=== PATIENT | male | born 1985 | race Two or more races ===

== ENCOUNTER 2017-05-18 10:22 | Emergency (ER) | payer BC, OTHER ==
[~2017-05-18] VITALS: Ht 182.9 cm; Wt 108.9 kg
[~2017-05-18 10:22] MED LIST: BENTYL10 MG ORAL; CEPHALEXIN500 MG ORAL; PERI-COLACE TA1 EACH PO; TRAMADOL HCL50 MG ORAL; ZANTAC150 MG ORAL
[2017-05-18 10:47] VITALS: BP 149/88
[2017-05-18] MEDS ORDERED: Ketorolac 30mg Inj IV ONE (11:15)
[2017-05-18 11:22] LABS: APPEARANCE,URINE CLEAR; KETONES,URINE NEGATIVE (NEGATIVE); LEUKOCYTE ESTERASE ,URINE NEGATIVE (NEGATIVE); NITRITE,URINE NEGATIVE (NEGATIVE); PH,URINE 6 (4.5-8.0); PROTEIN,URINE NEGATIVE (NEGATIVE); UROBILINOGEN,URINE NORMAL MG/DL (0.0-1.0)
[2017-05-18 11:27] LABS: BASOPHILS % (AUTO) 1.7 % (0.0-2.0); EOSINOPHILS % (AUTO) 1.2 % (0.0-3.0); LYMPHOCYTES % (AUTO) 34.5 % (20.0-45.0); MEAN CORPUSCULAR HEMOGLOBIN 29.2 PG (27.0-31.0); MEAN CORPUSCULAR HGB CONC 33.8 G/DL (32.0-36.0); MEAN CORPUSCULAR VOLUME 86 FL (80-99); MEAN PLATELET VOLUME 6.5 FL (6.5-10.1); MONOCYTES % (AUTO) 12.6 % (1.0-10.0); PLATELET COUNT 246 K/UL (150-450); RED BLOOD COUNT 5.73 M/UL (4.70-6.10); RED CELL DISTRIBUTION WIDTH 11.2 % (11.6-14.8); WHITE BLOOD COUNT 5.9 K/UL (4.8-10.8)
[2017-05-18 11:33] LABS: PROTHROMBIN TIME 10.4 SEC (9.30-11.50)
[2017-05-18 11:38] LABS: ANION GAP 4 mmol/L (5-15); CARBON DIOXIDE 32 MMOL/L (21-32); CHLORIDE 103 MMOL/L (98-107); GLOMERULAR FILTRATION RATE > 60 mL/min (>60); POTASSIUM 3.9 MMOL/L (3.5-5.1); SODIUM 139 MMOL/L (136-145)
[2017-05-18 11:44] LABS: ALANINE AMINOTRANSFERASE 66 U/L (12-78); ALBUMIN/GLOBULIN RATIO 1.1 (1.0-2.7); ASPARTATE AMINO TRANSFERASE 32 U/L (15-37); TOTAL PROTEIN 7.9 G/DL (6.4-8.2)
--- NOTE | 2017-05-18 11:48 | Diagnostic Imaging Report ---
Indication: Headache Technique: Continuous helical CT scanning of the head was performed without intravenous contrast material. Axial and coronal 5 mm sections were generated. Radiation dose was minimized using automated exposure control Dose: Total Dose Length Product - DLP [address] Dose Index - CTDIvol(s) 70.38 mGy. Comparison: None Findings: The ventricular system is normal in size and configuration. There is no shift of midline structures. No abnormal extra-axial fluid collections are noted. There is no evidence of intracerebral bleeding. No other abnormal high or low density areas are noted within the brain. Impression: Normal CT scan of the head without contrast material. The CT scanner at [facility] is accredited by the [employer] and the scans are performed using protocols designed to limit radiation exposure to as low as reasonably achievable to attain images of sufficient resolution adequate for diagnostic evaluation.
[2017-05-18 12:45] LABS: ERYTHROCYTE SEDIMENTATION RATE 4 MM/HR (0-15)
--- NOTE | 2017-05-18 12:51 | Emergency Room Report ---
History of Present Illness General Chief Complaint: Headache Source: Patient, Medical Record Present Illness HPI Patient presents with several days of worsening headache. He has never had a headache like this before. He denies trauma, fever. He feels it is worse when he looks to the right. There is no change in vision. It is more right sided and radiates up into his protestant area. Also has pain in his neck radiating upwards. He's not taken any medication. It prevented him from sleeping last night. No nausea or vomiting. He does occasionally drink alcohol and smoke. Denies drugs. No hypertension. He was admitted last year with appendicitis. No GI or symptoms. There is stress. Allergies: Coded Allergies: No Known Allergies (Unverified , 04/05/16) Patient History Past Medical History: see triage record, old chart reviewed Past Surgical History: appy Social History: Reports: smoking, alcohol use Social History Narrative Consul for [facility] Reviewed Nursing Documentation: PMH: Agreed, PSxH: Agreed Nursing Documentation-PMH Hx Cardiac Problems: No Hx Cancer: No Hx Gastrointestinal Problems: No Hx Neurological Problems: No Review of Systems All Other Systems: negative except mentioned in HPI Physical Exam Vital Signs Date Time Temp Pulse Resp B/P (MAP) Pulse Ox O2 Delivery O2 Flow Rate FiO2 05/18/17 10:27 98.1 98 20 149/88 99 Room Air Sp02 EP Interpretation: reviewed, normal General Appearance: well appearing, no apparent distress, GCS 15 Head: normocephalic Eyes: bilateral eye normal inspection, bilateral eye PERRL, bilateral eye EOMI ENT: moist mucus membranes Neck: full range of motion - with some R sided tenderness, supple Respiratory: lungs clear, normal breath sounds Cardiovascular #1: regular rate, rhythm Cardiovascular #2: 2+ radial (R) Gastrointestinal: normal inspection, normal bowel sounds, non tender, no mass, non-distended Musculoskeletal: back normal, gait/station normal, normal range of motion Neurologic: alert, oriented x3, accounts receivable clerk III-XII nml as tested, motor strength/tone normal, DTRs symmetric, sensory intact, cerebellar normal, normal gait, speech normal Psychiatric: mood/affect normal Skin: normal inspection, warm/dry Medical Decision Making Diagnostic Impression: Primary Impression: Headache Qualified Codes: G44.209 - Tension-type headache, unspecified, not intractable ER Course Patient presents with acute headache, most severe of life. DDx: vasculitis, tension, stress, trigeminial neuralgia, referred neck pain, bleed amongst others. No evidence of infective process. No red flag symptoms or signs, though severity of concern and makes CT and labs indicated. Will treat with toradol. Labs normal including sed rate. CT normal. Improved with minimal R temporal and neck tenderness. Pattern most c/w tension FLORES. No medical emergency at this time. Patient stable for outpatient observation and treatment. Laboratory Tests Test 05/18/17 11:00 White Blood Count 5.9 K/UL (4.8-10.8) Red Blood Count 5.73 M/UL (4.70-6.10) Hemoglobin 16.7 G/DL (14.2-18.0) Hematocrit 49.4 % (42.0-52.0) Mean Corpuscular Volume 86 FL (80-99) Mean Corpuscular Hemoglobin 29.2 PG (27.0-31.0) Mean Corpuscular Hemoglobin Concent 33.8 G/DL (32.0-36.0) Red Cell Distribution Width 11.2 % (11.6-14.8) L Platelet Count 246 K/UL (150-450) Mean Platelet Volume 6.5 FL (6.5-10.1) Neutrophils (%) (Auto) 50.0 % (45.0-75.0) Lymphocytes (%) (Auto) 34.5 % (20.0-45.0) Monocytes (%) (Auto) 12.6 % (1.0-10.0) H Eosinophils (%) (Auto) 1.2 % (0.0-3.0) Basophils (%) (Auto) 1.7 % (0.0-2.0) Erythrocyte Sedimentation Rate 4 MM/HR (0-15) Prothrombin Time 10.4 SEC (9.30-11.50) Prothrombin Time INR 1.0 (0.9-1.1) PTT 27 SEC (23-33) Urine Color Yellow Urine Appearance Clear Urine pH 6 (4.5-8.0) Urine Specific Mcintosh 1.015 (1.005-1.035) Urine Protein Negative (NEGATIVE) Urine Glucose (UA) Negative (NEGATIVE) Urine Ketones Negative (NEGATIVE) Urine Occult Blood Negative (NEGATIVE) Urine Nitrite Negative (NEGATIVE) Urine Bilirubin Negative (NEGATIVE) Urine Urobilinogen Normal MG/DL (0.0-1.0) Urine Leukocyte Esterase Negative (NEGATIVE) Sodium Level 139 MMOL/L (136-145) Potassium Level 3.9 MMOL/L (3.5-5.1) Chloride Level 103 MMOL/L (98-107) Carbon Dioxide Level 32 MMOL/L (21-32) Anion Gap 4 mmol/L (5-15) L Blood Urea Nitrogen 12 mg/dL (7-18) Creatinine 1.0 MG/DL (0.55-1.30) Estimate Glomerular Filtration Rate > 60 mL/min (>60) Glucose Level 86 MG/DL (74-106) Calcium Level 9.0 MG/DL (8.5-10.1) Total Bilirubin 0.5 MG/DL (0.2-1.0) Aspartate Amino Transferase (AST) 32 U/L (15-37) Alanine Aminotransferase (ALT) 66 U/L (12-78) Alkaline Phosphatase 74 U/L (46-116) Total Creatine Kinase 113 U/L (26-308) Troponin I < 0.017 ng/mL (0.000-0.056) Total Protein 7.9 G/DL (6.4-8.2) Albumin 4.2 G/DL (3.4-5.0) Globulin 3.7 g/dL Albumin/Globulin Ratio 1.1 (1.0-2.7) Urine Opiates Screen Negative (NEGATIVE) Urine Barbiturates Screen Negative (NEGATIVE) Phencyclidine (PCP) Screen Negative (NEGATIVE) Urine Amphetamines Screen Negative (NEGATIVE) Urine Benzodiazepines Screen Negative (NEGATIVE) Urine Cocaine Screen Negative (NEGATIVE) Urine Marijuana (THC) Screen Negative (NEGATIVE) CT/MRI/US Diagnostic Results CT/MRI/US Diagnostic Results : Imaging Test Ordered: head Impression nl brain, bones soft tissues Last Vital Signs Date Time Temp Pulse Resp B/P (MAP) Pulse Ox O2 Delivery O2 Flow Rate FiO2 05/18/17 13:19 98.1 87 18 143/83 99 Room Air Status: improved Disposition: HOME, SELF-CARE Condition: Improved Scripts Ibuprofen* (MOTRIN*) 600 Mg Tablet 600 MG ORAL Q6H Y for For Pain, #20 TAB Prov: Aníbal Valentin M.D. 05/18/17 Referrals: NOT CHOSEN ARINA/,REFERRING (PCP) Aníbal Valentin M.D. May 18, 2017 12:51
[2017-05-18] MEDS ORDERED: IBUPROFEN600 MG ORAL (12:54)
[2017-05-18 13:17] VITALS: BP 143/83
[2017-05-18 13:19] VITALS: BP 143/83
== END 2017-05-18 13:20 | disposition home or self-care (01) ==
LOC: EMR 11:30
DX: R51 Headache (principal); F17.200 Nicotine dependence, unspecified, uncomplicated
CPT/HCPCS: 36415; 70450; 80053; 80307; 81003; 82550; 84484; 85025; 85610; 85651; 85730; 96360; 99284; J1885

== ENCOUNTER 2017-06-01 12:16 | Emergency (ER) | payer SELFPAY ==
[~2017-06-01] VITALS: Ht 182.9 cm; Wt 106.1 kg
[~2017-06-01 12:16] MED LIST changes: +IBUPROFEN600 MG ORAL
[2017-06-01 12:24] VITALS: BP 115/78
[2017-06-01] MEDS ORDERED: NKM (12:29)
[2017-06-01] MEDS ORDERED: TYLENOL EXTRA500 MG ORAL (13:05)
[2017-06-01] MEDS ORDERED: PROMETHAZI6.25 MG/1 ORAL (13:05)
[2017-06-01 13:14] VITALS: BP 120/66
--- NOTE | 2017-06-01 13:41 | Emergency Room Report ---
History of Present Illness General Chief Complaint: General Complaint Source: Patient Present Illness HPI The patient is a 31-year-old male who denies any medical history presenting for 3 days of subjective fevers, chills, and total body pain. He states that he has been in close proximity with his coworkers who have had the same symptoms. He also admits to a mild dry cough. He denies any other symptoms including nausea, vomiting, shortness of breath, chest pain, abdominal pain, diarrhea, constipation, rash, headache, neck pain or stiffness Allergies: Coded Allergies: No Known Allergies (Unverified , 04/05/16) Patient History Past Medical History: see triage record Pertinent Family History: none Reviewed Nursing Documentation: PMH: Agreed, PSxH: Agreed Nursing Documentation-PMH Past Medical History: No Stated History Hx Cardiac Problems: No Hx Cancer: No Hx Gastrointestinal Problems: No Hx Neurological Problems: No Review of Systems All Other Systems: negative except mentioned in HPI Physical Exam Vital Signs Date Time Temp Pulse Resp B/P (MAP) Pulse Ox O2 Delivery O2 Flow Rate FiO2 06/01/17 12:24 98.2 85 16 115/78 96 Room Air Sp02 EP Interpretation: reviewed, normal General Appearance: no apparent distress, alert, GCS 15, non-toxic Head: normocephalic, atraumatic Eyes: bilateral eye normal inspection, bilateral eye PERRL ENT: hearing grossly normal, normal pharynx, no angioedema, normal voice, uvula midline Neck: full range of motion, supple, no bony tend, supple/symm/no masses Respiratory: chest non-tender, lungs clear, normal breath sounds, speaking full sentences Cardiovascular #1: regular rate, rhythm, no edema Gastrointestinal: normal bowel sounds, non tender, soft, non-distended, no guarding, no rebound Genitourinary: normal inspection, no CVA tenderness Musculoskeletal: back normal, gait/station normal, normal range of motion, non- tender Neurologic: alert, oriented x3, responsive, motor strength/tone normal, sensory intact, speech normal Psychiatric: judgement/insight normal, memory normal, mood/affect normal, no suicidal/homicidal ideation Skin: normal color, no rash, warm/dry, well hydrated Medical Decision Making PA Attestation Dr. Fajardo is my supervising physician. Patient management was discussed with my supervising physician Diagnostic Impression: Primary Impression: Viral syndrome ER Course The patient is a 31-year-old male who denies any medical history presenting for 3 days of subjective fevers, chills, and total body pain. Differential diagnosis include but not limited to pharyngitis, sinusitis, AOM, bronchitis, PNA, gastroenteritis PE: No apparent distress. A&Ox4 PERRL. EOMI. Normal mentation. RRR. No MRG Lungs CTA bilat Abdomen: Normal appearance. Non distended. No ecchymosis. Normal BS. Non TTP. No McBurney point tenderness. No guarding. Skin is warm and dry, no rashes. Chest x-ray is unremarkable The patient is discharged home with a prescription for Tylenol and promethazine. He will follow up with his primary doctor. He will take in plenty of fluids and rest. He is given limited time off of work for this. ER precautions are given Chest X-Ray Diagnostic Results Chest X-Ray Diagnostic Results : Chest X-Ray Ordered: Yes # of Views/Limited/Complete: 1 View Indication: Other - cough EP Interpretation: Yes PA Xray: Interpretation reviewed, by supervising MD, and agrees with findings. Interpretation: no consolidation, no effusion, no pneumothorax, no acute cardiopulmonary disease Impression: No acute disease Electronically Signed by: Celestine Brown PA-C Last Vital Signs Date Time Temp Pulse Resp B/P (MAP) Pulse Ox O2 Delivery O2 Flow Rate FiO2 06/01/17 13:14 98.2 78 18 120/66 98 Room Air Status: improved Disposition: HOME, SELF-CARE Condition: Improved Scripts Promethazine Hcl (PROMETHAZINE HCL*) 6.25 Mg/5 Ml Syrup 5 ML ORAL Q8H, #120 ML 0 Refills Prov: ANTHONY BROWNY P.A. 06/01/17 Acetaminophen* (TYLENOL EXTRA STRENGTH*) 500 Mg Tablet 500 MG ORAL Q8H Y for Prn Headache/Temp > 101, #30 TAB 0 Refills Prov: BETHANCELESTINE P.A. 06/01/17 Patient Instructions: Viral Respiratory Infection Additional Instructions: I discussed my findings with the patient. All questions and concerns have been answered. Treatment and medication compliance have been addressed. I advised the patient that they need to follow up with PMD in 3-5 days. Return to ED if symptoms worsen, new symptoms arise, or if needed for any reason. Patient verbalized understanding of discharge instructions. CELESTINE BROWN Jun 01, 2017 13:41
--- NOTE | 2017-06-01 17:13 | Diagnostic Imaging Report ---
Indication: COUGH Technique: One view of the chest Comparison: 04/07/2016 Findings: Lungs and pleural spaces are clear. Heart size is normal. No significant interim change Impression: No acute process
== END 2017-06-01 13:15 | disposition home or self-care (01) ==
LOC: EMR 12:40
DX: B34.9 Viral infection, unspecified (principal)
CPT/HCPCS: 71010; 99284

== ENCOUNTER 2017-08-16 13:18 | Emergency (ER) | payer OTHER ==
[~2017-08-16] VITALS: Ht 177.8 cm; Wt 108.9 kg
[~2017-08-16 13:18] MED LIST changes: +NKM; +PROMETHAZI6.25 MG/1 ORAL; +TYLENOL EXTRA500 MG ORAL
--- NOTE | 2017-08-16 14:13 | Emergency Room Report ---
History of Present Illness General Chief Complaint: Headache Source: Patient (Yris Moran) Present Illness HPI 32-year-old male presents to the emergency department complaining of 5/10 in severity intermittent dull headache that is generalized and does not return in the same location and x2 days. Patient denies nausea, vomiting, recent head injury or trauma, neck pain/stiffness or photophobia. Patient reports that his symptoms are consistent with previous presentations when his iron is elevated. Patient reports he has a history of hemochromatosis requiring therapeutic phlebotomy every 6 months. Patient states that he has more than 2 months over 2 for her phlebotomy. [place] with [place] medical system and has not had followup regularly here for his hemachromatosis. Patient denies abdominal pain, diarrhea, or constipation. He denies jaundice, night sweats, confusion. Reports some mild fatigue. Denies CP, Palpitations, LOC, AMS, dizziness, Changes in Vision, Sensation, paresthesias, or a sudden severe headache. He states that he took an aspirin early this morning and it provided temporary relief of his symptoms however hours later his symptoms have returned.. (Yris Moran) Allergies: Coded Allergies: No Known Allergies (Unverified , 04/05/16) Patient History Past Medical History: see triage record Past Surgical History: none Pertinent Family History: none Reviewed Nursing Documentation: PMH: Agreed, PSxH: Agreed (Yris Moran) Nursing Documentation-PMH Past Medical History: No Stated History (Yris Moran) Review of Systems All Other Systems: negative except mentioned in HPI (Yris Moran) Physical Exam Vital Signs Date Time Temp Pulse Resp B/P (MAP) Pulse Ox O2 Delivery O2 Flow Rate FiO2 08/16/17 13:21 97.7 70 18 104/54 96 Room Air 97.7 Sp02 EP Interpretation: reviewed, normal General Appearance: no apparent distress, alert, GCS 15, non-toxic Head: normocephalic, atraumatic Eyes: bilateral eye normal inspection, bilateral eye PERRL ENT: hearing grossly normal, normal voice Neck: full range of motion, no meningismus, no bony tend Respiratory: lungs clear, normal breath sounds, speaking full sentences Cardiovascular #1: regular rate, rhythm Gastrointestinal: normal bowel sounds, non tender, soft Musculoskeletal: back normal, gait/station normal, normal range of motion, non- tender Neurologic: alert, oriented x3, responsive, motor strength/tone normal, sensory intact, normal gait, speech normal, no pronator, grossly normal Psychiatric: judgement/insight normal Skin: normal color, no rash, warm/dry, well hydrated (Yris Moran) Medical Decision Making PA Attestation Dr. Valentin is my supervising Physician whom patient management has been discussed with. (Yris Moran) Diagnostic Impression: Primary Impression: Headache Qualified Codes: R51 - Headache Additional Impression: History of hemochromatosis ER Course 32-year-old male presents to the emergency department complaining of 5/10 in severity intermittent dull headache that is generalized and does not return in the same location and x2 days. Patient denies nausea, vomiting, recent head injury or trauma, neck pain/stiffness or photophobia. Patient reports that his symptoms are consistent with previous presentations when his iron is elevated. Patient reports he has a history of hemochromatosis requiring therapeutic phlebotomy every 6 months. Patient states that he has more than 2 months over 2 for her phlebotomy. Patient states [place] with the medical system and has not had followup regularly here for his hemachromatosis. Patient denies abdominal pain, diarrhea, or constipation. He denies jaundice, night sweats, confusion. Reports some mild fatigue. Denies CP, Palpitations, LOC, AMS, dizziness, Changes in Vision, Sensation, paresthesias, or a sudden severe headache. He states that he took an aspirin early this morning and it provided temporary relief of his symptoms however hours later his symptoms have returned.. Ddx considered but are not limited to migraine, SAH, Psedudo motor Cerebri, Mass lesion, Cluster FLORES, Tension FLORES, Post lumbar puncture FLORES, Iron Overload, hepatic failure just to name a few. Vital signs: are WNL, pt. is afebrile H&PE are most consistent with migraine headache ORDERS: - CBC; unremarkable -CMP: unremarkable -Ferritin: 255 -Trans-ferritin : Pending ED INTERVENTIONS: - Reglan PO -Excedrin Migraine PO On reevaluation patient states that his symptoms have resolved. Discussed with this patient the results of his blood work and that he needs to followup with plastic outfitter for further monitoring/determination is future phlebotomy as needed. Discussed the patient to return to the emergency department promptly with any worsening or new symptoms. DISCHARGE: At this time pt. is stable for d/c to home. Will provide printed patient care instructions, and any necessary prescriptions. Care plan and follow up instructions have been discussed with the patient prior to discharge. Labs Test 08/16/17 14:25 White Blood Count 6.3 K/UL (4.8-10.8) Red Blood Count 5.18 M/UL (4.70-6.10) Hemoglobin 15.2 G/DL (14.2-18.0) Hematocrit 44.1 % (42.0-52.0) Mean Corpuscular Volume 85 FL (80-99) Mean Corpuscular Hemoglobin 29.3 PG (27.0-31.0) Mean Corpuscular Hemoglobin Concent 34.4 G/DL (32.0-36.0) Red Cell Distribution Width 11.9 % (11.6-14.8) Platelet Count 216 K/UL (150-450) Mean Platelet Volume 6.9 FL (6.5-10.1) Neutrophils (%) (Auto) 55.9 % (45.0-75.0) Lymphocytes (%) (Auto) 34.6 % (20.0-45.0) Monocytes (%) (Auto) 6.9 % (1.0-10.0) Eosinophils (%) (Auto) 0.6 % (0.0-3.0) Basophils (%) (Auto) 2.0 % (0.0-2.0) Sodium Level 137 MMOL/L (136-145) Potassium Level 4.1 MMOL/L (3.5-5.1) Chloride Level 101 MMOL/L (98-107) Carbon Dioxide Level 32 MMOL/L (21-32) Anion Gap 4 mmol/L (5-15) Blood Urea Nitrogen 12 mg/dL (7-18) Creatinine 0.9 MG/DL (0.55-1.30) Estimat Glomerular Filtration Rate > 60 mL/min (>60) Glucose Level 84 MG/DL (74-106) Calcium Level 9.3 MG/DL (8.5-10.1) Ferritin 255 NG/ML (8-388) Total Bilirubin 0.8 MG/DL (0.2-1.0) Aspartate Amino Transf (AST/SGOT) 25 U/L (15-37) Alanine Aminotransferase (ALT/SGPT) 37 U/L (12-78) Alkaline Phosphatase 68 U/L (46-116) Total Protein 8.2 G/DL (6.4-8.2) Albumin 4.3 G/DL (3.4-5.0) Globulin 3.9 g/dL Albumin/Globulin Ratio 1.1 (1.0-2.7) (Yris Moran) Transferrin = 228 which is normal (Aníbal Valentin M.D.) Last Vital Signs Date Time Temp Pulse Resp B/P (MAP) Pulse Ox O2 Delivery O2 Flow Rate FiO2 08/16/17 13:21 97.7 70 18 104/54 96 Room Air 97.7 (Yrsi Moran) Last Vital Signs Date Time Temp Pulse Resp B/P (MAP) Pulse Ox O2 Delivery O2 Flow Rate FiO2 08/16/17 16:03 98.0 60 18 107/72 96 Room Air 97.7 (Aníbal Valentin M.D.) Disposition: HOME, SELF-CARE Condition: Stable Scripts Aspirin/Acetaminophen/Caffeine (EXCEDRIN MIGRAINE GELTAB) 1 Each Tablet 1 EACH PO Q6HR, #20 TAB Prov: Yris Moran 08/16/17 Departure Forms: Return to Work Return to Work Date: Aug 20, 2017 Work Restrictions: None Return to Full Activity: Aug 20, 2017 Patient Instructions: Ferritin Test, Tension Headache, Therapeutic Phlebotomy Additional Instructions: Take medications as directed. Follow up with a Heel Cover Splitter or Primary Care Provider in 3-5 days, even if your symptoms have resolved. --Please bring laboratory results with you to your appointment. Return sooner to ED if new symptoms occur, or current symptoms become worse. - Please note that this Emergency Department Report was dictated using [employer] cutter operator technology software, occasionally this can lead to erroneous entry secondary to interpretation by the dictation equipment. Yris Moran Aug 16, 2017 14:13 Aníbal Valentin M.D. Aug 19, 2017 00:11
[2017-08-16] MEDS ORDERED: Metoclopramide 10mg/10ml Liq ORAL ONE (14:15)
[2017-08-16] MEDS ORDERED: Excedrin Migraine tab ORAL ONE (14:15)
[2017-08-16 14:36] LABS: EOSINOPHILS % (AUTO) 0.6 % (0.0-3.0); HEMATOCRIT 44.1 % (42.0-52.0); HEMOGLOBIN 15.2 G/DL (14.2-18.0); LYMPHOCYTES % (AUTO) 34.6 % (20.0-45.0); MEAN CORPUSCULAR VOLUME 85 FL (80-99); MONOCYTES % (AUTO) 6.9 % (1.0-10.0); NEUTROPHILS % (AUTO) 55.9 % (45.0-75.0); PLATELET COUNT 216 K/UL (150-450); RED BLOOD COUNT 5.18 M/UL (4.70-6.10); RED CELL DISTRIBUTION WIDTH 11.9 % (11.6-14.8); WHITE BLOOD COUNT 6.3 K/UL (4.8-10.8)
[2017-08-16 14:48] LABS: ANION GAP 4 mmol/L (5-15); BLOOD UREA NITROGEN 12 mg/dL (7-18); CALCIUM 9.3 MG/DL (8.5-10.1); CARBON DIOXIDE 32 MMOL/L (21-32); CHLORIDE 101 MMOL/L (98-107); CREATININE 0.9 MG/DL (0.55-1.30); POTASSIUM 4.1 MMOL/L (3.5-5.1); SODIUM 137 MMOL/L (136-145)
[2017-08-16 15:05] LABS: ALANINE AMINOTRANSFERASE 37 U/L (12-78); ALBUMIN 4.3 G/DL (3.4-5.0); ALBUMIN/GLOBULIN RATIO 1.1 (1.0-2.7); ALKALINE PHOSPHATASE 68 U/L (46-116); ASPARTATE AMINO TRANSFERASE 25 U/L (15-37); BILIRUBIN,TOTAL 0.8 MG/DL (0.2-1.0); FERRITIN 255 NG/ML (8-388)
[2017-08-16] MEDS ORDERED: EXCEDRIN MIGRA1 EACH PO (15:54)
[2017-08-16 16:02] VITALS: BP 107/72
[2017-08-16 16:03] VITALS: BP 107/72
== END 2017-08-16 16:05 | disposition home or self-care (01) ==
LOC: EMR 14:06 → MERGE 14:06 → EMR 16:05
DX: R51 Headache (principal); E83.119 Hemochromatosis, unspecified
CPT/HCPCS: 36415; 80053; 82728; 84466; 85025; 99284